=== PATIENT | female | born 1980 | race Caucasian/White ===

== ENCOUNTER 2021-02-16 18:22 | Emergency (ER) | payer OTHER, SELFPAY ==
[2021-02-16 18:35] VITALS: BMI 28.1
[2021-02-16 18:36] VITALS: BP 130/80; PULSE 69; RESP 18; TEMP 36.8; O2SAT 96; BMI 28.1
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
== END 2021-02-16 18:50 | disposition home or self-care (01) ==
PROVIDERS: Emergency Provider Emergency Medicine
DX: M62.838 Other muscle spasm (principal); V89.2XXA Person injured in unspecified motor-vehicle accident, traffic, initial encounter
CPT/HCPCS: 99281

== ENCOUNTER 2022-01-02 10:01 | Emergency (ER) | payer OTHER, SELFPAY ==
[2022-01-02] VITALS (19 sets, daily range): BP systolic 108–135; BP diastolic 63–87; PULSE 61–85; RESP 16–18; TEMP 36.9; O2SAT 95–99; BMI 29.0
--- NOTE | 2022-01-02 11:10 | ED_ITS ---
HPI - Neck Pain/Injury General Chief Complaint: Neck Pain/Injury Stated Complaint: SOB, neck swollen Time Seen by Provider: 01/02/22 10:59 Source: patient Mode of arrival: Ambulatory Limitations: no limitations History of Present Illness HPI Narrative: This is a 32 female with complaint of her neck feeling swollen in her lower neck particularly right greater than left. She noticed it last Monday, 5 days ago. Patient states not painful but she feels like there is a pressure on her airway or when she tries to swallow. She states it is difficult to swallow her saliva, liquids or but she has been able to. She noted when she lifted her arms above her head this bothered her more the last 2 days. She has not had any fevers or chills. No change to voice. She has not had similar symptoms in the past. She denies pain movement or rotation. She has been seeing PT for a nerve impingement and had traction of her neck which helped as well as working on impingement of her ulnar nerve. She states this has been improving with time. She states she had an ultrasound ordered outpatient by her primary care but no lab work. She comes in today because it feel like it is getting worse. There has been no warmth, erythema or other skin changes. She denies any chest pain or pressure discomfort in her chest. No nausea or vomiting. She did have omeprazole which helped and resolved her symptoms for 2 days. She has not had any loss of bowel or bladder control. She had loose stools 2 days ago but no other persistent symptoms. No numbness, tingling or weakness elsewhere does have pain down her right arm which has been persistent but improving with PT for several months. Related Data Previous Rx's Medication Instructions Recorded ketorolac 10 mg tablet 10 mg PO Q6H PRN #14 tab 02/16/21 Allergies Allergy/AdvReac Type Severity Reaction Status Date / Time No Known Drug Allergies Allergy Verified 02/16/21 18:45 Review of Systems Review of Systems ROS Unobtainable: All systems reviewed & are unremarkable except as noted in HPI and below Patient History Social History Smoking Status: Never smoker Smoking Status: Never smoker alcohol intake frequency: 0-2 drinks per day Substance Use Type: does not use Exam Narrative Exam Narrative: GEN: well nourished, well appearing female, alert and oriented x 3, patient appears to be in mild distress. HEENT: Atraumatic, pupils are equal round reactive to light, extraocular movements are intact, nares are clear, TMs are clear with no fluid, there is no conjunctival pallor. Throat is clear without any exudates, erythema, tonsillar enlargement or uvular deviation, patient does have some more right-sided soft tissue prominence just above the clavicle, unable to clearly palpate her thyroid, there is no masses appreciated, no lymphadenopathy cervically or subm andibular, there is no fullness in the fossa of the clavicle. Patient is able to lay back flat without any issue. No hoarseness or speech changes. No difficulty swallowing saliva or secretions. There is no warmth, erythema or other skin changes noted. Patient has full range of motion with flexion extension rotation and side bending. HEART: Regular rate and rhythm without murmur, clicks, rubs. LUNGS:Lungs clear to auscultation, no wheezes, rales, crackles, chest moves symmetrically ABD:bowel sounds normal, soft, non-tender, no guarding, rebound, rigidity, no masses noted, no hepatosplenomegaly MSCL: Non-tender, no muscle atrophy, muscles strength 5/5 upper and lower extremities, full range of motion, normal gait NEURO:CN 2-12 intact, sensation normal. Initial Vital Signs Initial Vital Signs: Vital Signs Temperature 98.5 F 01/02/22 10:26 Pulse Rate 68 01/02/22 10:26 Respiratory Rate 18 01/02/22 10:26 Blood Pressure 128/78 01/02/22 10:26 Pulse Oximetry 98 01/02/22 10:26 Course Orders Ordered: ED Orders 01/02/22 10:32 CBC Auto Diff [Complete Blood Count AUTO DIFF] Stat CMP [Comprehensive Metabolic Panel] Stat Free T4, Direct Thyroxine Stat T4 Total Thyroxine Stat Thyroid Stimulating Hormone Stat 01/02/22 11:25 US soft tissue head and neck Stat 01/02/22 13:30 [address] angio chest Stat CT angio neck Stat 01/02/22 16:30 COVID19 -Nasal swab/Pre-Proc Stat Reevaluation(s) Reevaluation #1: Updated patient on findings. Plan for angio of neck and chest for evaluation of vessels as well as for mass or other changes. Reviewed patient's labs, she has some enlarged lymph nodes bilaterally. Time: 13:37 Reevaluation #2: Patient, her friend at bedside and myself discussed her findings today, recommendations for local your oncology, Dr. Fulton of [facility] oncology and I also spoke with her flight surgeon Dr. Smith. They do accept for transfer at this time feel that she can be seen outpatient but if she is having worsening symptoms she does need to return. Patient is to follow-up with oncology shortly at the call tomorrow morning with our local oncologist. If she has any difficulty reaching them wanting follow-up she can call tomorrow during the day and I will help facilitate. Also discussed with her slight surgeon who will put in the appropriate referrals. All questions answered. Patient given discs imaging and films. Consultations Consultation #1: Dr. Padron, oncology. Asked that we contact [facility] oncology as they may accept patient for transfer to initiate treatment. He suspects lymphoma this most likely cause. Consultation #2: Dr. Clarence Rice, oncology, [facility]-reviewed patient's images himself. He suspect patient likely has B-cell lymphoma but this will have to be confirmed with biopsy. States that the lymphoma clinic ?see the patient until biopsy. Does not feel patient needs to be transferred today can likely go home unless there is any cardiac instability. Patient has been we discussed ambulating, appropriate vitals. I am unable to get an echo here in the department today. He will personally discuss with Dr. Padron to facilitate being seen here locally and initiating treatment locally and then referring to likely [facility]. Consultation #3: Dr. Pineda, flight surgeon for patient. Updated with oncology recommendations. He will initiate referrals for the patient as well. Discussed that the only voluntary basis would be [facility] which is more remote than [facility] or our local oncology. We did discuss if there appear to be any barriers to care patient can call me tomorrow or can come back if she is having any acute worsening symptoms. She was also sent with discs of her imaging. All questions answered. Vital Signs Vital signs: Vital Signs - 8 hr 01/02/22 11:12 01/02/22 11:30 01/02/22 12:00 Pulse Rate 62 64 68 Respiratory Rate 16 Blood Pressure 108/73 111/68 108/66 Pulse Oximetry 97 95 97 01/02/22 12:30 01/02/22 13:00 01/02/22 13:30 Pulse Rate 64 66 66 Respiratory Rate Blood Pressure 113/76 115/67 120/66 Pulse Oximetry 97 97 97 01/02/22 13:42 01/02/22 14:00 01/02/22 14:30 Pulse Rate 75 74 67 Respiratory Rate Blood Pressure 125/72 117/75 Pulse Oximetry 99 97 98 01/02/22 14:46 01/02/22 15:00 01/02/22 15:30 Pulse Rate 64 66 61 Respiratory Rate Blood Pressure 110/71 110/67 110/71 Pulse Oximetry 98 97 97 01/02/22 16:00 01/02/22 16:01 01/02/22 16:30 Pulse Rate 78 69 77 Respiratory Rate Blood Pressure 135/87 120/67 Pulse Oximetry 98 98 97 01/02/22 17:00 01/02/22 17:30 Pulse Rate 85 84 Respiratory Rate Blood Pressure 130/83 117/63 Pulse Oximetry 97 96 MDM - Neck Pain/Injury Lab Data Result diagrams: 01/02/22 10:32 01/02/22 10:32 Labs: Lab Results 01/02/22 01/02/22 01/02/22 Range/Units 10:32 10:32 10:32 WBC 6.0 (4.5-11.0) X10^3/uL RBC 4.39 (4.0-5.2) X10^6/uL Hgb 12.7 (12.0-16.0) g/dL Hct 37.4 (36-46) % MCV 85.1 (80-100) fL MCH 28.9 (26-34) PG MCHC 34.0 (30-36) % RDW 13.1 (11.6-14.8) % Plt Count 280 (150-400) X10^3/uL Neut % (Auto) 70.9 (50-75) % Lymph % (Auto) 16.6 L (25-40) % [place] % (Auto) 10.7 (3-14) % Eos % (Auto) 1.1 L (2-4) % Baso % (Auto) 0.7 (0-2) % Neut # (Auto) 4300 (1672-4987) /uL Lymph # (Auto) 1000 L (7593-1271) /uL [place] # (Auto) 600 (0-900) /uL Eos # (Auto) 100 (0-450) /uL Baso # (Auto) 0 (0-100) /uL Sodium 138 (137-145) mmol/L Potassium 4.2 (3.4-5.1) mmol/L Chloride 106 (98-107) mmol/L Carbon Dioxide 27 (22-32) mmol/L BUN 11 (7-17) mg/dL Creatinine 0.78 (0.52-1.04) mg/dL Estimated GFR > 60.0 (>60) mL/min BUN/Creatinine Ratio 14.1 (6-22) Glucose 83 (70-100) mg/dL Calcium 9.5 (8.4-10.2) mg/dL Total Bilirubin 1.2 (0.2-1.3) mg/dL AST 27 (14-36) IU/L ALT 14 (<35) IU/L Alkaline Phosphatase 63 (38-126) U/L Total Protein 7.9 (6.3-8.2) g/dL Albumin 4.3 (3.5-5.0) g/dL Globulin 3.6 (1.7-4.1) g/dL Albumin/Globulin Ratio 1.2 (1.0-2.8) TSH 1.72 (0.47-4.68) uIU/mL Free T4 (0.78-2.19) ng/dL Thyroxine (T4) 7.88 (5.5-11.0) ug/dL SARS-CoV-2 (PCR) (Negative) 01/02/22 01/02/22 Range/Units 10:32 16:30 WBC (4.5-11.0) X10^3/uL RBC (4.0-5.2) X10^6/uL Hgb (12.0-16.0) g/dL Hct (36-46) % MCV (80-100) fL MCH (26-34) PG MCHC (30-36) % RDW (11.6-14.8) % Plt Count (150-400) X10^3/uL Neut % (Auto) (50-75) % Lymph % (Auto) (25-40) % [place] % (Auto) (3-14) % Eos % (Auto) (2-4) % Baso % (Auto) (0-2) % Neut # (Auto) (5871-5478) /uL Lymph # (Auto) (3642-6199) /uL [place] # (Auto) (0-900) /uL Eos # (Auto) (0-450) /uL Baso # (Auto) (0-100) /uL Sodium (137-145) mmol/L Potassium (3.4-5.1) mmol/L Chloride (98-107) mmol/L Carbon Dioxide (22-32) mmol/L BUN (7-17) mg/dL Creatinine (0.52-1.04) mg/dL Estimated GFR (>60) mL/min BUN/Creatinine Ratio (6-22) Glucose (70-100) mg/dL Calcium (8.4-10.2) mg/dL Total Bilirubin (0.2-1.3) mg/dL AST (14-36) IU/L ALT (<35) IU/L Alkaline Phosphatase (38-126) U/L Total Protein (6.3-8.2) g/dL Albumin (3.5-5.0) g/dL Globulin (1.7-4.1) g/dL Albumin/Globulin Ratio (1.0-2.8) TSH (0.47-4.68) uIU/mL Free T4 1.02 (0.78-2.19) ng/dL Thyroxine (T4) (5.5-11.0) ug/dL SARS-CoV-2 (PCR) Negative (Negative) Point of Care Testing Test Results Negative Urine Dip Bedside Urine Glucose Negative Bedside Urine Bilirubin - Negative Bedside Urine Ketone - Negative Urine Specific [place] 1.020 Bedside Urine Occult Blood - Negative Bedside Urine pH 6 Bedside Urine Protein - Negative Bedside Urine Urobilinogen - Negative Bedside Urine Nitrite - Negative Bedside Urine Leukocytes - Negative Esterase Imaging Data soft tissue US head/neck: Radiologist's Impression: [address] [address] Ultrasound Report Signed Patient: Hannah San MR#: [id number] : 1980 Acct:[id number] Age/Sex: 41 / F Date of Service: 01/02/22 Loc: ED Accession Number: [id number] ?? Procedure: US soft tissue head and neck Ordering Provider: Evie Chan D.O. PROCEDURE:? US SOFT TISSUE HEAD AND NECK ? INDICATIONS:? NECK SWELLING R>L ? TECHNIQUE:? Real-time scanning was performed of the neck region of interest, with image documentation.? ? COMPARISON:? None. ? FINDINGS:? Prominent bilateral lymph nodes are seen, which measure up to 1.6 cm AP on the left and up to 1.8 cm AP on the right. ? No mass is seen separate from the enlarged lymph nodes. ? Note is made of diminished/reversed flow within left internal jugular vein. ? ? IMPRESSION:? Enlarged bilateral cervical lymph nodes seen. ? Abnormal flow seen within the left internal jugular vein.? ? If it would be helpful for clinical management decision making in this patient with this given history, please consider a dedicated neck CT with IV contrast for further evaluation. ? ? Dictated by: Quoc Osorio M.D. on 01/02/2022 at 12:01 ? ? Approved by: Quoc Osorio M.D. on 01/02/2022 at 12:03?? CTA chest: Radiologist's Impression: Hannah San??41??F??1980 ? Allergy/Adv: No Known Drug Allergies Close Neck CTA (Signed) Riri Crooks - 01/02/22 Chest CTA (Signed) Riri Crooks - 01/02/22 Head/Neck Ultrasound (Signed) Quoc Osorio - 01/02/22 Launch?[place] [address] CT Scan Report Signed Patient: Hannah San MR#: [id number] : 1980 Acct:[id number] Age/Sex: 41 / F Date of Service: 01/02/22 Loc: ED Accession Number: [id number] ?? Procedure: CT angio neck Ordering Provider: Evie Chan D.O. PROCEDURE:? CT ANGIO NECK ? INDICATIONS:? L IJ dimished/reversal flow, swelling of neck R > L ? TECHNIQUE:? After the administration of intravenous contrast, 1.5 mm axial sections acquired from the aortic arch to the [place] of [place].? Maximum intensity projection (MIP) reformats were then performed.? ? COMPARISON:? [facility], , US SOFT TISSUE HEAD AND NECK, 01/02/2022, 12:01. ? FINDINGS:? Image quality:? Excellent.? ? Carotid system:? The great vessels demonstrate a conventional anatomy as they arise from the aortic arch.? The origins of the common carotid arteries appear patent.? The common carotid arteries demonstrate normal calibers and courses.? The bifurcation regions appear normal bilaterally.? The internal carotid arteries demonstrate normal caliber and course. ? ? Internal jugular veins:? There is mixing artifact throughout the left IJ vein given the study is timed for arterial opacification.? IJ veins are fairly symmetric in caliber. ? Posterior circulation:? The origins of the vertebral arteries appear patent.? The more superior portions of the vertebral arteries demonstrate normal course and caliber.? They join to form a normal appearing basilar artery.? ? Soft tissues:? Superior mediastinum demonstrates partially imaged large mass.? No cervical chain adenopathy, however there are several small questionable left supraclavicular lymph nodes.? The thyroid gland is minimally heterogeneous. ? Bones:? No suspicious bony lesions.? Visualized cervical spine appears normally aligned.? ? ? IMPRESSION:? ? 1. Mildly prominent left supraclavicular lymph nodes. ? 2. Normal arterial vasculature in the neck. ? 3. Venous mixing artifact seen in the right IJ vein.? ? Any quantitative stenosis measurements were performed using the NASCET criteria.? ? ? Dictated by: Riri Crooks M.D. on 01/02/2022 at 15:30 ? ? Approved by: Riri Crooks M.D. on 01/02/2022 at 15:35 CTA neck: Radiologist's Impression: Hannah San??41??F??1980 ? Allergy/Adv: No Known Drug Allergies Close Neck CTA (Signed) Riri Crooks - 01/02/22 Chest CTA (Signed) Riri Crooks - 01/02/22 Head/Neck Ultrasound (Signed) Quoc Osorio - 01/02/22 Launch?Image [address] [address] [address] Scan Report Signed Patient: Hannah San MR#: [id number] : 1980 Acct:[id number] Age/Sex: 41 / F Date of Service: 01/02/22 Loc: ED Accession Number: [id number] ?? Procedure: CT angio chest Ordering Provider: Evie Chan D.O. PROCEDURE:? CT ANGIO CHEST ? INDICATIONS:? L IJ dimished/reversal flow, swelling of neck R > L ? TECHNIQUE:? After the administration of intravenous contrast, 2 mm thick sections acquired from the pulmonary apices to the posterior costophrenic angles.? 3-dimensional maximum intensity projection (MIP) coronal and sagittal reformats were then acquired through the thorax.? For radiation dose reduction, the following was used:? automated exposure control, adjustment of mA and/or kV according to patient size.? ? COMPARISON:? None. ? FINDINGS:? Image quality:? Excellent.? ? Pulmonary arteries:? Pulmonary arteries are normal in size.? There is suboptimal bolus timing, likely due to altered physiology and peripheral emboli are not excluded. ? Lungs and pleura:? There is patchy atelectatic change in the medial right middle lobe and minor gravitational changes at the posterior costophrenic sulci bilaterally.? Trace left pleural effusion.? The airways are patent. ? Mediastinum:? There is a large anterior and right mediastinal mass causing near complete SVC narrowing.? The mass measures roughly 10.8 cm in oblique transverse diameter, about 7.4 cm in AP diameter, and extends nearly the entire length of the hemithorax measuring approximately 13.0 cm.? There is compression on the right atrium.? The heart is otherwise mildly enlarged.? No pericardial effusion.? The great vessels have a normal caliber.? The esophagus is normal.? There is no hilar adenopathy.? ? Bones and chest wall:? No suspicious bony lesions.? Ribs and thoracic spine appear intact throughout.? Thyroid gland is normal..? No axillary or supraclavicular adenopathy.? ? Abdomen:? Visualized upper abdominal solid organs appear normal in the early arterial phase of enhancement.? ? IMPRESSION:? ? 1. Large anterior mediastinal mass with a differential diagnosis of thymoma, lymphoma, thymic carcinoma, less likely metastatic disease. ? 2. 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 ? 3. No other adenopathy in the chest.? ? ? Dictated by: Riri Crooks M.D. on 01/02/2022 at 15:23 ? ? Approved by: Riri Crooks M.D. on 01/02/2022 at 15:29?? [facility] Narrative Medical decision making narrative: This is a 41-year-old female who comes in with complaint of swelling and prominence of her neck with a sensation of pressure. She did have improvement with omeprazole for 2 days so GERD reflux may be a component of this but she does have some prominence on the right side in comparison to left on exam although no palpable structural changes appreciated otherwise. Labs and soft tissue ultrasound of the head and neck were obtained on shows decreased almost reversal of flow the left IJ. plan for CT imaging of the vessels of the neck as well as the chest to evaluate for vascular changes, structural changes as well as potential masses. Patient's CTA of neck and chest show a large mediastinal mass with near compression of SVC. Patient has prominence of the right neck but no obvious facial or upper extremity swelling, no erythema or skin changes. Patient case was discussed with Oncology locally and at [facility]. Dr. Rice from [facility] oncology is going to speak with our local oncology to help facilitate close outpatient follow-up, initiation of treatment and biopsy. Patient appears stable today for discharge home but was given strict return precautions. Discharge Plan Departure Patient Disposition: Home Clinical Impression: Mass of mediastinum, Compression of superior vena cava Instructions: Mediastinal Mass Activity Restrictions/Additional Instructions: Your imaging today shows a large mass in your chest causing your symptoms and compressing your superior vena cava. I spoke with oncology locally, Dr. Padron and Dr. Clarence Rice at [facility] with oncology. Call Dr. Padron's office tomorrow to set up follow up and initiate treatment. They can also help set up biopsy of the mass for formal diagnosis. Dr. Rice is helping to set this up so that you can initiate treatment and get properly referred. Please return for new worsening chest pain, shortness of breath, swelling of your neck, arm or chest that is worsening, if you have redness of your face or flushing, new numbness or weakness of your arm or other new or concerning symptoms. Prescriptions: No Action ketorolac 10 mg tablet 10 mg PO Q6H PRN (Reason: pain) Qty: 14 0RF Referrals: Tom Padron MD [Physician] - CHEO Pineda MD [Non-Staff] - Clarence Rice MD [Non-Staff] -
--- NOTE | 2022-01-02 11:25 | DI.US.S_ITS ---
PROCEDURE: US SOFT TISSUE HEAD AND NECK INDICATIONS: NECK SWELLING R>L TECHNIQUE: Real-time scanning was performed of the neck region of interest, with image documentation. COMPARISON: None. FINDINGS: Prominent bilateral lymph nodes are seen, which measure up to 1.6 cm AP on the left and up to 1.8 cm AP on the right. No mass is seen separate from the enlarged lymph nodes. Note is made of diminished/reversed flow within left internal jugular vein. IMPRESSION: Enlarged bilateral cervical lymph nodes seen. Abnormal flow seen within the left internal jugular vein. If it would be helpful for clinical management decision making in this patient with this given history, please consider a dedicated neck CT with IV contrast for further evaluation. Dictated by: Quoc Osorio M.D. on 01/02/2022 at 12:01 Approved by: Quoc Osorio M.D. on 01/02/2022 at 12:03
[2022-01-02 11:29] LABS: T4 Total Thyroxine 7.88 ug/dL (5.5-11.0)
[2022-01-02 11:42] LABS: Add Manual Diff / Slide Review NO; Basophils Absolute Auto 0 /uL (0-100); Basophils Percent Auto 0.7 % (0-2); Eosinophils Absolute Auto 100 /uL (0-450); Eosinophils Percent Auto 1.1 % (2-4); Hematocrit 37.4 % (36-46); Hemoglobin 12.7 g/dL (12.0-16.0); Lymphocytes Absolute Auto 1000 /uL (1100-4500); Lymphocytes Percent Auto 16.6 % (25-40); Mean Corpuscular Hemoglobin 28.9 PG (26-34); Mean Corpuscular Volume 85.1 fL (80-100); Monocytes Absolute Auto 600 /uL (0-900); Monocytes Percent Auto 10.7 % (3-14); Neutrophils Absolute Auto 4300 /uL (1500-7000); Neutrophils Percent Auto 70.9 % (50-75); Platelet Count 280 X10^3/uL (150-400); Red Blood Cell Count 4.39 X10^6/uL (4.0-5.2); Red Cell Distribution Width 13.1 % (11.6-14.8)
[2022-01-02 11:43] LABS: Thyroid Stimulating Hormone 1.72 uIU/mL (0.47-4.68)
[2022-01-02 11:44] LABS: Alanine Aminotransferase 14 IU/L (<35); Albumin 4.3 g/dL (3.5-5.0); Albumin Globulin Ratio 1.2 (1.0-2.8); Alkaline Phosphatase 63 U/L (38-126); Aspartate Aminotransferase 27 IU/L (14-36); BUN Creatinine Ratio 14.1 (6-22); Bilirubin Total 1.2 mg/dL (0.2-1.3); Blood Urea Nitrogen 11 mg/dL (7-17); Calcium 9.5 mg/dL (8.4-10.2); Carbon Dioxide 27 mmol/L (22-32); Chloride 106 mmol/L (98-107); Estimated Glomerular Filt Rate > 60.0 mL/min (>60); Globulin 3.6 g/dL (1.7-4.1); Glucose 83 mg/dL (70-100); HEMOLYSIS < 15 (0-50); Potassium 4.2 mmol/L (3.4-5.1); Sodium 138 mmol/L (137-145); Total Protein 7.9 g/dL (6.3-8.2)
[2022-01-02 12:13] LABS: Free T4, Direct Thyroxine 1.02 ng/dL (0.78-2.19)
--- NOTE | 2022-01-02 13:30 | DI.CT.S_ITS ---
PROCEDURE: CT ANGIO CHEST INDICATIONS: L IJ dimished/reversal flow, swelling of neck R > L TECHNIQUE: After the administration of intravenous contrast, 2 mm thick sections acquired from the pulmonary apices to the posterior costophrenic angles. 3-dimensional maximum intensity projection (MIP) coronal and sagittal reformats were then acquired through the thorax. For radiation dose reduction, the following was used: automated exposure control, adjustment of mA and/or kV according to patient size. COMPARISON: None. FINDINGS: Image quality: Excellent. Pulmonary arteries: Pulmonary arteries are normal in size. There is suboptimal bolus timing, likely due to altered physiology and peripheral emboli are not excluded. Lungs and pleura: There is patchy atelectatic change in the medial right middle lobe and minor gravitational changes at the posterior costophrenic sulci bilaterally. Trace left pleural effusion. The airways are patent. Mediastinum: There is a large anterior and right mediastinal mass causing near complete SVC narrowing. The mass measures roughly 10.8 cm in oblique transverse diameter, about 7.4 cm in AP diameter, and extends nearly the entire length of the hemithorax measuring approximately 13.0 cm. There is compression on the right atrium. The heart is otherwise mildly enlarged. No pericardial effusion. The great vessels have a normal caliber. The esophagus is normal. There is no hilar adenopathy. Bones and chest wall: No suspicious bony lesions. Ribs and thoracic spine appear intact throughout. Thyroid gland is normal.. No axillary or supraclavicular adenopathy. Abdomen: Visualized upper abdominal solid organs appear normal in the early arterial phase of enhancement. IMPRESSION: 1. Large anterior mediastinal mass with a differential diagnosis of thymoma, lymphoma, thymic carcinoma, less likely metastatic disease. 2. 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 3. No other adenopathy in the chest. Dictated by: Riri Crooks M.D. on 01/02/2022 at 15:23 Approved by: Riri Crooks M.D. on 01/02/2022 at 15:29
--- NOTE | 2022-01-02 13:30 | DI.CT.S_ITS ---
PROCEDURE: CT ANGIO NECK INDICATIONS: L IJ dimished/reversal flow, swelling of neck R > L TECHNIQUE: After the administration of intravenous contrast, 1.5 mm axial sections acquired from the aortic arch to the [place] of [place]. Maximum intensity projection (MIP) reformats were then performed. COMPARISON: [facility], , US SOFT TISSUE HEAD AND NECK, 01/02/2022, 12:01. FINDINGS: Image quality: Excellent. Carotid system: The great vessels demonstrate a conventional anatomy as they arise from the aortic arch. The origins of the common carotid arteries appear patent. The common carotid arteries demonstrate normal calibers and courses. The bifurcation regions appear normal bilaterally. The internal carotid arteries demonstrate normal caliber and course. Internal jugular veins: There is mixing artifact throughout the left IJ vein given the study is timed for arterial opacification. IJ veins are fairly symmetric in caliber. Posterior circulation: The origins of the vertebral arteries appear patent. The more superior portions of the vertebral arteries demonstrate normal course and caliber. They join to form a normal appearing basilar artery. Soft tissues: Superior mediastinum demonstrates partially imaged large mass. No cervical chain adenopathy, however there are several small questionable left supraclavicular lymph nodes. The thyroid gland is minimally heterogeneous. Bones: No suspicious bony lesions. Visualized cervical spine appears normally aligned. IMPRESSION: 1. Mildly prominent left supraclavicular lymph nodes. 2. Normal arterial vasculature in the neck. 3. Venous mixing artifact seen in the right IJ vein. Any quantitative stenosis measurements were performed using the NASCET criteria. Dictated by: Riri Crooks M.D. on 01/02/2022 at 15:30 Approved by: Riri Crooks M.D. on 01/02/2022 at 15:35
[2022-01-02 16:56] LABS: COVID19 -Nasal RAPID Negative (Negative)
== END 2022-01-02 17:40 | disposition home or self-care (01) ==
PROVIDERS: Emergency Provider Emergency Medicine
DX: J98.59 Other diseases of mediastinum, not elsewhere classified (principal); Z20.822 Contact with and (suspected) exposure to COVID-19
CPT/HCPCS: 36415; 70498; 71275; 76536; 80053; 81003; 81025; 84436; 84439; 84443; 85025; 87635; 99284; C9803

== ENCOUNTER 2022-12-26 20:40 | Emergency (ER) | payer OTHER, SELFPAY ==
[2022-12-26 20:43] VITALS: BP 122/70; PULSE 74; RESP 16; TEMP 36.4; O2SAT 98; BMI 29.0
--- NOTE | 2022-12-27 02:57 | PC.NURSE ---
Patient approached main nursing station requesting to be discharged. Given [facility] paper work that she signed. Provider made aware.
== END 2022-12-27 02:57 | disposition left against medical advice (07) ==
PROVIDERS: Emergency Provider Emergency Medicine
CPT/HCPCS: 99281

== ENCOUNTER 2023-02-17 09:00 | Day surgery (SDC) | payer OTHER, SELFPAY ==
[2023-02-14 15:16] VITALS: BMI 31.4
--- NOTE | 2023-02-17 | PATH_ITS ---
[facility] Accession Number: [id number] No. of containers..01 Tissue . 01 Material submitted: . fallopian tube - BILATERAL FALLOPIAN TUBES . 01 Diagnosis: A. Bilateral Fallopian Tubes, Bilateral Salpingectomy: Cross-sections of bilateral fallopian tubes with features of hydrosalpinx. No evidence of dysplasia or malignancy. [facility] 02/21/2023 1733 Local . 01 Electronically signed: . Lexii Recinos MD, Pathologist NPI- [id number] . 01 Gross description: . The specimen is received in formalin labeled with the patient's name, , and bilateral fallopian tubes, and consists of two unoriented fimbriated fallopian tubes measuring 6.9 x 0.6 cm and 6.4 x 0.4 cm, respectively. The longer fallopian tube has eastman smooth serosa with several small cystic structures measuring up to 0.2 cm in greatest dimension, filled with clear serous fluid. Sectioning reveals an unremarkable stellate lumen. The shorter fallopian tube has congested smooth serosa with no cystic structures grossly identified. Sectioning reveals an unremarkable stellate lumen. Architecture Manager sections to include one-half of the bisected fimbriae and cross sections are submitted as follows: A1: Longer fallopian tube. A2: Wolcott fallopian tube. ([id number]) /R 02/18/2023 1935 Local . 01 Pathologist provided ICD-10: Z30.2 . 01 CPT . 904491 Specimen Comment: A courtesy copy of this report has been sent to [phone] Performed at: 01 [facility] [address] [place] [address] [address], [place], [place] [id number] MD Abimael Perez MD Phone: [phone]
[2023-02-17 09:17] VITALS: BMI 31.4
[2023-02-17 09:18] VITALS: BP 114/73; PULSE 72; RESP 19; TEMP 36.2; O2SAT 97; BMI 31.4
[2023-02-17] MEDS: LACTATED RINGERS 1,000 ML 42 ML IV (09:29)
[2023-02-17 09:38] VITALS: BMI 31.4
--- NOTE | 2023-02-17 10:35 | PM.PREOP ---
Pre-operative Note COVID-19 COVID-19 status: Not tested Criteria for continued procedure: Non-surgical alternatives not available or appropriate per current SOC Interval Note History & Physical reviewed/Exam performed by Physician: Yes Changes to H&P: No
--- NOTE | 2023-02-17 11:17 | SUR.OPER ---
Lithotomy on padded OR bed, head on pillow, arms secured on padded arm boards at <90 degrees abduction. Legs secured in padded yellow fins stirrups.
[2023-02-17] MEDS: ACETAMINOPHEN IV 1,000 MG/100 ML VIAL 400 MG IV (11:29)
[2023-02-17] MEDS: BUPIVACAINE 0.5% (PF) 30 ML, EPINEPHrine 0.15 MG INJ (11:30)
[2023-02-17] MEDS: BUPIVACAINE 0.5% (PF) 10 ML VIAL INJ (11:32)
[2023-02-17 12:00] VITALS: BP 99/58; PULSE 81; RESP 16; TEMP 36.2; O2SAT 100
--- NOTE | 2023-02-17 12:04 | PM.GYNOP.1 ---
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 Patient is a nulligravida by choice and is absolutely certain she does not wish to have children in the future.? As result she would like to take steps to prevent on a permanent basis.? 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 As result for chemotherapy, she has has experienced chemo-pause with FSH and LH levels in October 2022 clearly in the menopausal range.? She is also experiencing classic vasomotor symptoms and other symptoms of menopause.? She would like to consider initiation of postmenopausal HRT.? She has no family history of breast cancer or gynecologic malignancies.? Paps have always been normal and her Pap is current. Alternatives, risks, benefits, and potential complications associated with laparoscopic bilateral salpingectomy reviewed with the patient.? She is aware that laparoscopic sterilization is a procedure which will make it permanently and irreversibly impossible for her to bear children on her own without benefit of assisted reproductive technology.? She also understands that this procedure can fail to prevent 1-11/999 procedures and if does occur chances are significant that it would be an ectopic gestation.? With full understanding of the above, patient expresses a desire to proceed with laparoscopic sterilization.? She presents today for?her scheduled surgery. Surgeon: Vincent Hartman Anesthesia Type: General Operative Notes Findings: On exam under anesthesia the patient appears to lichenoid changes at the vaginal introitus. The vagina is unremarkable and IUD strings seen protruding through the cervical os. An intact Mirena IUD was removed with ring forceps. At laparoscopy the anterior and posterior cul-de-sac were free of any abnormalities. Both ovaries also appeared to be normal as do the tubes. There is a 2 cm intraligamentous myoma arising from the lateral aspect of the right lower uterine segment Closure Type: primary Specimen(s): left tube and right tube Estimated blood loss (mL): 5 Blood products transfused: none Procedure in detail: With the patient under satisfactory general anesthesia in the modified dorsal lithotomy position, the perineum, vagina, and abdomen were prepped and draped for IUD removal and laparoscopic bilateral salpingectomy. A pre-surgical safety time-out was then taken in accordance with [facility] Main OR protocols. The umbilicus was then infiltrated with 0.5% Marcaine with epinephrine and 1 cm vertical incision was made in the inferior aspect of the umbilicus. Veress needle was used to insufflate the abdomen with carbon dioxide and once appropriately insufflated, 5 mm bladeless trocar and sleeve were inserted through the incision. Proper placement of the sleeve was confirmed with laparoscopic visualization and insufflation of the abdomen continued. A 2nd and 3rd 5 mm laparoscopic port were placed in the right and left mid quadrants using a similar technique and using a 3 puncture technique, the abdomen and pelvis were visualized with the findings as noted above. The distal aspect of the left fallopian tube was then grasped with a grasping forceps and using a Power Seal device, fimbria ovarica was coagulated and divided the dissection using the Power Seal continuing across the mesosalpinx to the cornua where the base fallopian tube was coagulated and divided. The left fallopian tube was then removed through one of the ports and submitted pathologic specimen. Attention was then turned to the right adnexa with distal tube grasped with a grasping forcep. The Power Seal device was then used to coagulate fimbria ovarica and the dissection was carried across the mesosalpinx to the cornua where the fallopian tube on the right side was amputated at the cornua following coagulation proximal tube the Power Seal device. Pelvis was inspected and there were no abnormalities noted following bilateral salpingectomy. The pneumoperitoneum was then vented and the ports removed from the abdominal wall. Port incisions were then closed with 4-0 Monocryl using inverted interrupted stitches and skin glue was applied. Appropriate dressings were then applied, patient was awakened, and transferred to the PACU for a period of observation after having tolerated the procedure well. Complications: none Post-operative Condition: stable Disposition: PACU Plan for aftercare: Routine postoperative care with follow-up planned for 2 weeks.
[2023-02-17 12:05] VITALS: BP 106/59; PULSE 79; RESP 16; TEMP 36.8; O2SAT 100
[2023-02-17 12:12] VITALS: BP 101/66; PULSE 66; RESP 16; TEMP 36.8; O2SAT 98
[2023-02-17] MEDS: OXYCODONE IR 5 MG TABLET PO (12:15)
[2023-02-17] MEDS: ONDANSETRON 4 MG/2 ML INJ IV (12:15)
[2023-02-17 12:21] VITALS: BP 125/74; PULSE 74; RESP 16; TEMP 36.8; O2SAT 98
== END 2023-02-17 13:00 | disposition home or self-care (01) ==
PROVIDERS: PCP Student in an Organized Health Care Education/Training Program; Referring Provider Obstetrics & Gynecology; Visit Provider Obstetrics & Gynecology
PROC: 0UT74ZZ Resection of Bilateral Fallopian Tubes, Percutaneous Endoscopic Approach (ICD-10-PCS; CPT 58661; principal; 2023-02-17 10:30)
DX: Z30.2 Encounter for sterilization (principal); Z30.432 Encounter for removal of intrauterine contraceptive device; C85.20 Mediastinal (thymic) large B-cell lymphoma, unspecified site; D28.2 Benign neoplasm of uterine tubes and ligaments
CPT/HCPCS: 58661; 58301; J0131; J0171; J1100; J2250; J2405; J2704; J3010

== ENCOUNTER → 2024-08-22 08:34 | Outpatient (CLI) | payer OTHER, SELFPAY ==
[2024-08-27 09:10] LABS: Atopobium vaginae High - 2 Score (.); Bact Vaginosis-Assoc. bacteria High - 2 Score (.); Candida albicans, NAA Negative (Negative); Candida glabrata Negative (Negative); Chlamydia trachomatis Negative (Negative); Megasphaera 1 High - 2 Score (.); Neisseria gonorrhoeae Negative (Negative); Trichomoas vaginalis by NAA Negative (Negative)
== END ==
PROVIDERS: PCP Family Medicine; Visit Provider Family Medicine
DX: N94.9 Unspecified condition associated with female genital organs and menstrual cycle (principal); N89.8 Other specified noninflammatory disorders of vagina; N76.0 Acute vaginitis; Z85.72 Personal history of non-Hodgkin lymphomas; Z68.29 Body mass index [BMI] 29.0-29.9, adult
CPT/HCPCS: 87480; 87491; 87510; 87591; 87798; 87801

== ENCOUNTER → 2025-06-26 11:09 | Outpatient (CLI) | payer OTHER, SELFPAY | PROVIDERS: PCP Family Medicine; Visit Provider Physician Assistant | DX: R30.0 Dysuria (principal) | CPT/HCPCS: 87077; 87086; 87186 ==

== ENCOUNTER 2025-09-17 18:48 | Emergency (ER) | payer OTHER, SELFPAY ==
[2025-09-17] VITALS (7 sets, daily range): BP systolic 102–151; BP diastolic 60–66; PULSE 60–76; RESP 13–23; TEMP 36.6; O2SAT 95–99; BMI 30.5
--- NOTE | 2025-09-17 19:05 | ED.ABDPAIN ---
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 She has had 3 bowel movements today and did have pasta earlier. Patient denies chest pain vomiting diarrhea constipation rectal bleeding urinary complaints vaginal discharge. Other than what is stated 14 point review of system is negative. Related Data Home Medications ?Medication ?Instructions ?Recorded ?Confirmed acetaminophen 500 mg capsule 500 mg PO Q6H PRN 01/10/23 06/26/25 ibuprofen 200 mg tablet 200 mg PO Q6H PRN 01/10/23 06/26/25 famotidine 40 mg tablet 40 mg PO DAILY 02/06/25 06/26/25 metformin 500 mg tablet,extended 500 mg PO DAILY 02/06/25 06/26/25 release 24 hr Previous Rx's ?Medication ?Instructions ?Recorded estradiol 0.075 mg/24 hr 1 patch transdermal 2XW #8 ea 08/22/24 semiweekly transdermal patch (Vivelle-Dot) progesterone micronized 100 mg 100 mg PO QPM #30 caps 08/22/24 capsule (Prometrium) sertraline 100 mg tablet 100 mg PO DAILY #90 tabs 08/22/24 sumatriptan succinate 50 mg tablet 50 mg PO ONCE #90 tabs 08/22/24 semaglutide (weight loss) 0.25 0.25 mg (0.5 mL) SUBCUT QWEEK #2 mL 02/06/25 mg/0.5 mL subcutaneous pen injector (Wegovy) valacyclovir 500 mg tablet 500 mg PO .COMPLEX #10 tabs 02/06/25 phenazopyridine 200 mg tablet 200 mg PO TID PRN pain 6 doses #6 06/26/25 (Pyridium) tabs Allergies Allergy/AdvReac Type Severity Reaction Status Date / Time No Known Drug Allergies Allergy Verified 09/17/25 18:59 Review of Systems Review of Systems ROS Unobtainable: All systems reviewed & are unremarkable except as noted in HPI and below Patient History Medical History (Updated 09/17/25 @ 22:23 by Scott Wilson DO) Port-A-Cath in place B-cell lymphoma (2021) Surgical History (Updated 03/02/23 @ 12:07 by Vincent Hartman MD) History of female sterilization Social History household members: none Smoking Status: Never smoker alcohol intake: current Smoking Status: Never smoker alcohol intake frequency: 0-2 drinks per day Exam Narrative Exam Narrative: GENERAL: [45] year old patient appears stated age. Well-developed patient, in mild distress. HEAD: Atraumatic. Normocephalic. EYES: Pupils equal round and reactive. Extraocular motions intact. No scleral icterus. No injection or drainage. ENT: Nose without bleeding, purulent drainage. Throat without erythema, tonsillar hypertrophy or exudate. Airway patent. NECK: Trachea midline. Non tender CARDIOVASCULAR: Regular rate and rhythm without murmurs, gallops, or rubs. RESPIRATORY: Clear to auscultation. Breath sounds equal bilaterally. No wheezes, rales, or rhonchi. GASTROINTESTINAL: Abdomen soft, RUQ ttp but no r/r/g EXTREMITIES: No edema or joint tenderness. BACK: Nontender without deformity or crepitance. No flank tenderness. NEURO: AOx3. SKIN: No rash or erythema of visible areas Initial Vital Signs Initial Vital Signs: Vital Signs Temperature 98 F 09/17/25 18:59 Pulse Rate 71 09/17/25 18:59 Respiratory Rate 17 09/17/25 18:59 Blood Pressure 151/66 H 09/17/25 18:59 Pulse Oximetry 99 09/17/25 18:59 Oxygen Delivery Method Room Air 09/17/25 18:59 Course Orders Ordered: ED Orders 09/17/25 19:07 CT abdomen pelvis w con Stat 09/17/25 19:33 US abdomen limited Stat 09/17/25 19:50 Complete Blood Count AUTO DIFF Stat Comprehensive Metabolic Panel Stat Ictotest Urine Stat Lipase Stat Urine Microscopic Stat Ondansetron HCl (Ondansetron 4 Mg/2 Ml Inj) 4 mg IV NOW PRN PRN Reason: Nausea And Vomiting Ondansetron HCl (Ondansetron 4 Mg Odt) 4 mg PO NOW PRN PRN Reason: Nausea And Vomiting Ondansetron HCl (Ondansetron 4 Mg/2 Ml Inj) 4 mg IV NOW PRN PRN Reason: Nausea And Vomiting Ondansetron HCl (Ondansetron 4 Mg Odt) 4 mg PO NOW PRN PRN Reason: Nausea And Vomiting Discontinued Medications Lactated Ringer's (Lactated Ringers) 1,000 mls @ 1,000 mls/hr IV BOLUS ONE Stop: 09/17/25 20:09 Last Infusion: 09/17/25 20:32 Dose: Infused Documented By: Admin: 09/17/25 19:54 Dose: 1,000 mls/hr Documented By: EEVR Ketorolac Tromethamine (Ketorolac 30 Mg/Ml Vial) 15 mg IV NOW ONE Stop: 09/17/25 19:11 Last Admin: 09/17/25 19:54 Dose: 15 mg Documented By: EVER Vital Signs Vital signs: Vital Signs - 8 hr 09/17/25 18:59 09/17/25 20:40 09/17/25 20:42 Temperature 98 F Pulse Rate 71 76 74 Respiratory Rate 17 13 Blood Pressure 151/66 H Pulse Oximetry 99 98 98 Oxygen Delivery Method Room Air 09/17/25 20:42 Temperature Pulse Rate Respiratory Rate Blood Pressure 105/63 Pulse Oximetry Oxygen Delivery Method MDM - Abdominal Pain Lab Data 09/17/25 19:50 09/17/25 19:50 Labs: Lab Results 09/17/25 Range/Units 19:50 WBC 8.2 (4.5-11.0) X10^3/uL RBC 4.40 (4.0-5.2) X10^6/uL Hgb 13.5 (12.0-16.0) g/dL Hct 39.6 (36-46) % MCV 89.9 (80-100) fL MCH 30.6 (26-34) PG MCHC 34.1 (30-36) % RDW 13.4 (11.6-14.8) % Plt Count 262 (150-400) X10^3/uL Neut % (Auto) 82.3 H (50-75) % Lymph % (Auto) 8.7 L (25-40) % [place] % (Auto) 7.5 (3-14) % Eos % (Auto) 0.7 L (2-4) % Baso % (Auto) 0.8 (0-2) % Neut # (Auto) 6800 (7340-0531) /uL Lymph # (Auto) 700 L (0519-7415) /uL [place] # (Auto) 600 (0-900) /uL Eos # (Auto) 100 (0-450) /uL Baso # (Auto) 100 (0-100) /uL Sodium 136 L (137-145) mmol/L Potassium 3.7 (3.4-5.1) mmol/L Chloride 106 (98-107) mmol/L Carbon Dioxide 20 L (22-32) mmol/L BUN 9 (7-17) mg/dL Creatinine 0.70 (0.52-1.04) mg/dL Estimated GFR > 60 (>60) mL/min BUN/Creatinine Ratio 12.9 (6-22) Glucose 125 H (70-99) mg/dL Calcium 8.9 (8.4-10.2) mg/dL Total Bilirubin 3.2 H (0.2-1.3) mg/dL AST 175 H (14-36) IU/L ALT 527 H (<35) IU/L Alkaline Phosphatase 148 H (38-126) U/L Total Protein 7.7 (6.3-8.2) g/dL Albumin 4.6 (3.5-5.0) g/dL Globulin 3.1 (1.7-4.1) g/dL Albumin/Globulin Ratio 1.5 (1.0-2.8) Lipase 357 H (23-300) U/L Ur Bilirubin Confirm Positive H (Negative) Urine RBC None seen (0-5/HPF) Urine WBC None seen (0-5/HPF) Ur Squamous Epith Cells 1-5 /hpf (0-5/HPF) Amorphous Sediment 1+ Urine Bacteria Moderate (10-30) H (None) Ur Culture Indicated? Cult not indicated Vol Urine Centrifuged 10ml (spun) Point of care testing: Point of Care Testing Test Results Negative Urine Dip Bedside Urine Glucose Negative Bedside Urine Bilirubin + 1 Bedside Urine Ketone - Negative Urine Specific [place] 1.030 Bedside Urine Occult Blood - Negative Bedside Urine pH 6.0 Bedside Urine Protein + 30 Bedside Urine Urobilinogen - Negative Bedside Urine Nitrite - Negative Bedside Urine Leukocytes - Negative Esterase MDM Narrative Medical decision making narrative: All lab work, vital signs, nurse triage note, medication list, previous ER visits, and all imaging studies reviewed. WBC 8.2 hemoglobin 13.5 platelets 262 sodium 136 potassium 3.7 chloride 106 CO2 20 BUN 9 creatinine 0.7 glucose 125 T bili 3.2 AST 175 ALT 527 alk-phos 148 lipase 357. Case d/w Surgeon at [facility] who Discharge Plan Departure Patient Disposition: [facility] Clinical Impression: Acute gallstone pancreatitis, Choledocholithiasis Prescriptions: No Action phenazopyridine [Pyridium] 200 mg tablet 200 mg PO TID PRN (Reason: pain) Qty: 6 0RF ibuprofen 200 mg tablet 200 mg PO Q6H PRN acetaminophen 500 mg capsule 500 mg PO Q6H PRN metformin 500 mg tablet extended release 24 hr 500 mg PO DAILY famotidine 40 mg tablet 40 mg PO DAILY Wegovy 0.25 mg/0.5 mL pen injector 0.25 mg SUBCUT QWEEK Qty: 2 3RF valacyclovir 500 mg tablet 500 mg PO .COMPLEX Qty: 10 0RF Rx Instructions: 500 mg orally; 500 mg twice daily for 3 days or 1 g once daily for 5 days estradiol [Vivelle-Dot] 0.075 mg/24 hr patch semiweekly 1 patch transdermal 2XW Qty: 8 12RF Rx Instructions: apply 1 patch for 3 days alternating with 1 patch for 4 days each week for 3 wks per 4-wk cycle progesterone micronized [Prometrium] 100 mg capsule 100 mg PO QPM Qty: 30 12RF sertraline 100 mg tablet 100 mg PO DAILY Qty: 90 3RF sumatriptan succinate 50 mg tablet 50 mg PO ONCE Qty: 90 3RF Referrals: Yenny Saha DO [Primary Care Provider, Family Practice]
--- NOTE | 2025-09-17 19:07 | DI.CT.S_ITS ---
PROCEDURE: CT ABDOMEN PELVIS W CON INDICATIONS: R sided abd back pain TECHNIQUE: After the administration of intravenous contrast, axial sections acquired from the lung bases to the pubic symphysis. Coronal and sagittal reformats were performed. For radiation dose reduction, the following was used: automated exposure control, adjustment of mA and/or kV according to patient size. COMPARISON: None. FINDINGS: Image quality: Diagnostic. Lower Chest: No significant findings. ABDOMEN: Liver: No solid mass. Gallbladder: Small dependent calcifications within the gallbladder suggestive of cholelithiasis without evidence of gallbladder wall thickening or pericholecystic fluid. Prominence of the common bile duct measuring up to 7 mm. Biliary ducts: No biliary dilation. Pancreas: No ductal dilation. Spleen: Size is within normal limits. Adrenal Glands: No adrenal nodules. Kidneys and Ureters: No hydronephrosis. No solid mass. No complex renal cystic lesion which requires follow up. Stomach and Bowel: Normal colonic caliber, without significant wall thickening. Normal-appearing appendix. Few scattered colonic diverticula without evidence of diverticulitis. Peritoneum: No abnormal intraperitoneal fluid. No free air. Ventral Wall: No significant ventral hernia. Abdominal Nodes: No retroperitoneal or mesenteric adenopathy by size criteria. Vessels: Aorta and inferior vena cava are normal in size. PELVIS: Pelvic Organs: Unremarkable. Bladder: No bladder wall thickening, accounting for underdistention. Pelvic Nodes: No enlarged lymph nodes. Miscellaneous: No inguinal hernias are seen. Bones: No aggressive osseous abnormality. IMPRESSION: Small dependent gallstones with prominence of the common bile duct. No CT findings to suggest cholecystitis. Otherwise unremarkable abdominal CT. Dictated by: Aj Ahmadi M.D. on 09/17/2025 at 21:33 Approved by: Aj Ahmadi M.D. on 09/17/2025 at 21:39
--- NOTE | 2025-09-17 19:33 | DI.US.S_ITS ---
PROCEDURE: US ABDOMEN LIMITED INDICATIONS: RUQ TECHNIQUE: Real-time scanning was performed of the abdominal and retroperitoneal organs, with image documentation. COMPARISON: None. FINDINGS: Gallbladder: Cholelithiasis. No wall thickening. No pericholecystic edema. Negative sonographic Porter's sign. Biliary ducts: Intrahepatic bile ducts are non-dilated. Extrahepatic bile duct caliber measures 12 mm. Normal is 6-7 mm or less in diameter, or 10 mm or less post-cholecystectomy. Pancreas: Visualized portions of the pancreas are sonographically normal. Miscellaneous: No free abdominal fluid. IMPRESSION: Cholelithiasis without sonographic evidence of acute cholecystitis. Dilated common bile duct measuring up to 12 mm. No choledocholithiasis identified. Recommend correlation with LFTs. If LFTs abnormal, consider MRCP, ERCP or endoscopic ultrasound for evaluation. Approved by: Margaret Andres M.D.,Ph.D. on 09/17/2025 at 20:06
[2025-09-17] MEDS: KETOROLAC 30 MG/ML VIAL 15 MG IV (19:54)
[2025-09-17] MEDS: LACTATED RINGERS 1,000 ML 1000 ML IV (19:54)
[2025-09-17 20:07] LABS: Add Manual Diff / Slide Review NO; Hematocrit 39.6 % (36-46); Hemoglobin 13.5 g/dL (12.0-16.0); Lymphocytes Absolute Auto 700 /uL (1100-4500); Mean Corpuscular HGB Conc 34.1 % (30-36); Mean Corpuscular Hemoglobin 30.6 PG (26-34); Mean Corpuscular Volume 89.9 fL (80-100); Platelet Count 262 X10^3/uL (150-400)
[2025-09-17 20:14] LABS: Ictotest Urine Positive (Negative)
[2025-09-17 20:16] LABS: Alanine Aminotransferase 527 IU/L (<35); Albumin 4.6 g/dL (3.5-5.0); Albumin Globulin Ratio 1.5 (1.0-2.8); Alkaline Phosphatase 148 U/L (38-126); Blood Urea Nitrogen 9 mg/dL (7-17); Calcium 8.9 mg/dL (8.4-10.2); Carbon Dioxide 20 mmol/L (22-32); Chloride 106 mmol/L (98-107); Estimated Glomerular Filt Rate > 60 mL/min (>60); Globulin 3.1 g/dL (1.7-4.1); Glucose 125 mg/dL (70-99); HEMOLYSIS < 15 (0-50); Lipase 357 U/L (23-300); Potassium 3.7 mmol/L (3.4-5.1); Sodium 136 mmol/L (137-145); Total Protein 7.7 g/dL (6.3-8.2)
[2025-09-17 20:23] LABS: Culture Indicated Urine Cult Not Indicated
--- NOTE | 2025-09-17 23:09 | PC.NURSE ---
[facility] here to transport pt. [facility] Spoke w/Bianca. Unable to reach receiving RN d/t shift change. TECHNICAL MANAGER noted PAMELA Israel advised next shift RN would call this ED for report when available.
== END 2025-09-17 23:20 | disposition short-term general hospital (02) ==
PROVIDERS: Emergency Provider Family Medicine; PCP Family Medicine
DX: K85.10 Biliary acute pancreatitis without necrosis or infection (principal); K80.50 Calculus of bile duct without cholangitis or cholecystitis without obstruction; Z85.72 Personal history of non-Hodgkin lymphomas
CPT/HCPCS: 36415; 74177; 76705; 80053; 81003; 81015; 81025; 83690; 85025; 96374; 99284; J1885; J7120; Q9967